=== PATIENT | male | born 2000 | race Caucasian/White ===

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

== ENCOUNTER 2021-01-25 19:48 | Emergency (ER) | payer OTHER ==
[~2021-01-25] VITALS: Ht 183 cm; Wt 129.0 kg
[2021-01-25 19:58] VITALS: BP 132/77
[2021-01-25] MEDS ORDERED: CETI10CA PO (20:04)
[2021-01-25] MEDS ORDERED: PARO10TA3 PO (20:04)
[2021-01-25] MEDS ORDERED: ALBU8TAB PO (20:04)
[2021-01-25] MEDS ORDERED: MONT10TA21 PO (20:04)
[2021-01-25] MEDS ORDERED: MUPIROCIN 2% OINT 22 GM (BACTROBAN) TUBE NSEACH ONE (20:15)
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
== END 2021-01-25 20:19 | disposition home or self-care (01) ==
LOC: EDUNIT# 19:48 → ER 19:50
DX: R19.8 Other specified symptoms and signs involving the digestive system and abdomen (principal); J45.909 Unspecified asthma, uncomplicated; Z79.899 Other long term (current) drug therapy
CPT/HCPCS: 99281

== ENCOUNTER 2022-10-31 23:56 | Emergency (ER) | payer OTHER ==
[~2022-10-31 23:56] MED LIST changes: +ALBU8TAB PO; +CETI10CA PO; +MONT-47 PO; +PARO10TA3 PO
[2022-11-01 00:22] VITALS: BP 134/97
--- NOTE | 2022-11-01 00:41 | ED Abdominal Pain ---
General Chief Complaint: Abdominal/GI Problems Stated Complaint: ABD PAIN,NAUSEA Nursing Triage Note: PT AMB TO RM 3 WITH CC OF RUQ ABD PAIN SINCE YESTERDAY AM. PT REPORTS NAUSEA, WEAKNESS AND DIARRHEA. Source of Information: Patient Exam Limitations: No Limitations History of Present Illness Date Seen by Provider: Nov 01, 2022 Time Seen by Provider: 00:40 Initial Comments Patient is a 22-year-old male who presents to the emergency department with a chief complaint of abdominal pain, nausea and diarrhea. Patient states his symptoms started early yesterday with multiple bouts of diarrhea nonblack nonbloody. He denies any fever. He states the pain has been kind of central in his abdomen but has slowly migrated to the right lower quadrant. He states it got much worse before bed this evening. His last oral intake food ledesma was around 6 PM. He did have something to drink just prior to arrival. He states movement makes the pain worse. Nothing makes it any better. He has never had any abdominal operations. He has not taken anything for the pain. Currently rates his pain at a "4" he states at its worst it was around an "8 or 9". He believes he is allergic to doxycycline but he is not sure. Timing/Duration: 1-2 Days Severity/Quality: Severe, Cramping Location: Periumbilical Radiation: RLQ Activities at Onset: None Associated Symptoms: Nausea/Vomiting, Weakness, Other (diarrhea) Allergies and Home Medications Allergies Coded Allergies: No Known Drug Allergies (Unverified , 01/03/12) Patient Home Medication List Home Medication List Reviewed: Yes Albuterol Sulfate (Albuterol Sulfate) 8 Mg Tab.er.12h, Unknown Dose PO, (Reported) Entered as Reported by: FRANKLIN CHAVARRIA on 01/25/212003 Cetirizine HCl (Zyrtec) 10 Mg Capsule, Unknown Dose PO, (Reported) Entered as Reported by: FRANKLIN CHAVARRIA on 01/25/212003 Montelukast Sodium (Singulair) 10 Mg Tablet, Unknown Dose PO, (Reported) Entered as Reported by: FRANKLIN CHAVARRIA on 01/25/212003 Paroxetine HCl (Paroxetine HCl) 10 Mg Tablet, Unknown Dose PO, (Reported) Entered as Reported by: FRANKLIN CHAVARRIA on 01/25/212003 Review of Systems Review of Systems Constitutional: see HPI EENTM: No Symptoms Reported Respiratory: No Symptoms Reported Cardiovascular: No Symptoms Reported Gastrointestinal: Abdominal Pain, Diarrhea, Nausea Genitourinary: Other (history of "overactive" bladder) Musculoskeletal: no symptoms reported Skin: no symptoms reported Psychiatric/Neurological: Other (history of Bipolar disorder - states compliant with his meds - no complaints) All Other Systems Reviewed Negative Unless Noted: Yes Past Knrrtya-Pjuzjf-Rlwhio Hx Patient Social History Tobacco Use?: No Substance use?: No Alcohol Use?: No Immunizations Up To Date Tetanus Booster (TDap): Less than 5yrs First/Initial COVID19 Vaccinat: 11/04 Second COVID19 Vaccination Vince: 12/05 Third COVID19 Vaccination Date: 11/04 Seasonal Allergies Seasonal Allergies: Yes Past Medical History Surgery/Hospitalization HX: asthma,adhd Surgeries: Yes Tonsillectomy Respiratory: Yes Asthma Currently Using CPAP: No Currently Using BIPAP: No Cardiac: No Neurological: No Genitourinary: No Gastrointestinal: No Musculoskeletal: No Endocrine: No HEENT: Yes (S/P TONSILLECTOMY) Tonsilitis Cancer: No Psychosocial: No Integumentary: No Blood Disorders: No Family Medical History No Pertinent Family Hx Physical Exam Vital Signs Vital Signs - First Documented 11/01/22 00:22 Temp 36.9 Pulse 100 Resp 18 B/P (MAP) 134/97 (109) Pulse Ox 100 O2 Delivery Room Air Capillary Refill : Height/Weight/BMI Height: '58" Weight: 134lbs. oz. 60.628754gt; 38.00 BMI Method: General Appearance: WD/WN, no apparent distress HEENT: PERRL/EOMI Neck: normal inspection Respiratory: lungs clear, normal breath sounds, no respiratory distress, no accessory muscle use Cardiovascular: regular rate, rhythm Gastrointestinal: soft, abnormal bowel sounds (quiet BS), rebound, tenderness (RLQ; + Rovsing's) Extremities: normal range of motion, normal inspection Neurologic/Psychiatric: alert, normal mood/affect, oriented x 3 Skin: normal color, warm/dry Progress/Results/Core Measures Results/Orders Lab Results Laboratory Tests Test 11/01/22 00:23 Range/Units White Blood Count 11.8 H 4.3-11.0 10^3/uL Red Blood Count 5.60 H 4.30-5.52 10^6/uL Hemoglobin 17.0 13.3-17.7 g/dL Hematocrit 49 40-54 % Mean Corpuscular Volume 87 80-99 fL Mean Corpuscular Hemoglobin 30 25-34 pg Mean Corpuscular Hemoglobin Concent 35 32-36 g/dL Red Cell Distribution Width 12.2 10.0-14.5 % Platelet Count 198 130-400 10^3/uL Mean Platelet Volume 10.6 9.0-12.2 fL Immature Granulocyte % (Auto) 0 % Neutrophils (%) (Auto) 63 42-75 % Lymphocytes (%) (Auto) 26 12-44 % Monocytes (%) (Auto) 9 0-12 % Eosinophils (%) (Auto) 2 0-10 % Basophils (%) (Auto) 1 0-10 % Neutrophils # (Auto) 7.4 1.8-7.8 10^3/uL Lymphocytes # (Auto) 3.1 1.0-4.0 10^3/uL Monocytes # (Auto) 1.0 0.0-1.0 10^3/uL Eosinophils # (Auto) 0.2 0.0-0.3 10^3/uL Basophils # (Auto) 0.1 0.0-0.1 10^3/uL Immature Granulocyte # (Auto) 0.0 0.0-0.1 10^3/uL Sodium Level 137 135-145 MMOL/L Potassium Level 3.8 3.6-5.0 MMOL/L Chloride Level 104 98-107 MMOL/L Carbon Dioxide Level 23 21-32 MMOL/L Anion Gap 10 5-14 MMOL/L Blood Urea Nitrogen 11 7-18 MG/DL Creatinine 0.97 0.60-1.30 MG/DL Estimat Glomerular Filtration Rate 114 BUN/Creatinine Ratio 11 Glucose Level 97 70-105 MG/DL Calcium Level 9.7 8.5-10.1 MG/DL Corrected Calcium 8.5-10.1 MG/DL Total Bilirubin 0.5 0.1-1.0 MG/DL Aspartate Amino Transf (AST/SGOT) 46 H 5-34 U/L Alanine Aminotransferase (ALT/SGPT) 131 H 0-55 U/L Alkaline Phosphatase 108 40-136 U/L Total Protein 7.3 6.4-8.2 GM/DL Albumin 4.6 H 3.2-4.5 GM/DL Lipase 26 8-78 U/L My Orders Orders - LINETTE,KEISHA M MD Ed Iv/Invasive Line Start (11/01/22 00:41) Cbc With Automated Diff (11/01/22 00:41) Comprehensive Metabolic Panel (11/01/22 00:41) Lipase (11/01/22 00:41) Ns Iv 1000 Ml (Sodium Chloride 0.9%) (11/01/22 01:12) Fentanyl Inj (Sublimaze Injection) (11/01/22 01:15) Ondansetron Injection (Zofran Injectio (11/01/22 01:15) Ct Abd/Pelv W (Appendicitis) (11/01/22 01:13) Iohexol Injection (Omnipaque 350 Mg/Ml 1 (11/01/22 01:45) Received Contrast (Hold Metformin- Contr (11/01/22 01:45) Sodium Chloride Flush (Catheter Flush Sy (11/01/22 01:45) Ns (Ivpb) (Sodium Chloride 0.9% Ivpb Bag (11/01/22 01:45) Medications Given in ED Current Medications Medications Dose Ordered Sig/Lyndon Route Start Time Stop Time Status Last Admin Dose Admin Fentanyl Citrate 50 mcg ONCE ONCE IVP 11/01/22 01:15 11/01/22 01:17 DC 11/01/22 01:23 50 MCG Iohexol 100 ml ONCE ONCE IV 11/01/22 01:45 11/01/22 01:46 DC 11/01/22 01:47 100 ML Ondansetron HCl 4 mg ONCE ONCE IVP 11/01/22 01:15 11/01/22 01:17 DC 11/01/22 01:23 4 MG Sodium Chloride 10 ml NEEDED PRN IV 11/01/22 01:45 11/01/22 01:47 10 ML Sodium Chloride 100 ml ONCE ONCE IV 11/01/22 01:45 11/01/22 01:46 DC 11/01/22 01:47 80 ML Vital Signs/I&O 11/01/22 00:22 Temp 36.9 Pulse 100 Resp 18 B/P (MAP) 134/97 (109) Pulse Ox 100 O2 Delivery Room Air Blood Pressure Mean: 109 Progress Progress Note : Time: 03:40 Departure Impression Primary Impression: Abdominal pain Qualified Codes: R10.31 - Right lower quadrant pain Additional Impression: Enteritis Disposition: HOME, SELF-CARE Condition: Stable Departure-Patient Inst. Decision time for Depature: 04:02 Referrals: [facility]/MOHINI (PCP) Primary Care Physician GONZALEZ LARSON (Family) Primary Care Physician Patient Instructions: Diarrhea, Adult ED Add. Discharge Instructions: Drink plenty of clear liquids today to stay well hydrated. You can slowly advance your diet as tolerated this evening. You can take an over the counter anti-diarrheal medication if needed. Follow packaging instructions. Ondansetron 4mg orally disintegrating tablets - 1 every 8 hours as needed for nausea. If you develop a fever over 101, worsening pain with vomiting, please return to the Emergency Department for re-evaluation. Scripts Ondansetron (Ondansetron Odt) 4 Mg Tab.rapdis 4 MG PO Q6H PRN for NAUSEA/VOMITING, #12 TAB 0 Refills Prov: KEISHA SUE MD 11/01/22 Work/School Note: Work Release Form Date Seen in the Emergency Department: J 2022 Return to Work: Nov 02, 2022 Copy Copies To 1: NARAYAN ROBERTO KATHRYN M MD Nov 01, 2022 00:41
[2022-11-01 00:46] LABS: BASOPHILS # (AUTO) 0.1 10^3/uL (0.0-0.1); BASOPHILS % (AUTO) 1 % (0-10); EOSINOPHILS # (AUTO) 0.2 10^3/uL (0.0-0.3); EOSINOPHILS % (AUTO) 2 % (0-10); HEMATOCRIT 49 % (40-54); LYMPHOCYTES # (AUTO) 3.1 10^3/uL (1.0-4.0); LYMPHOCYTES % (AUTO) 26 % (12-44); MEAN CORPUSCULAR HEMOGLOBIN 30 pg (25-34); MEAN CORPUSCULAR HGB CONC 35 g/dL (32-36); MEAN CORPUSCULAR VOLUME 87 fL (80-99); MEAN PLATELET VOLUME 10.6 fL (9.0-12.2); MONOCYTES % (AUTO) 9 % (0-12); NEUTROPHILS # (AUTO) 7.4 10^3/uL (1.8-7.8); NEUTROPHILS % (AUTO) 63 % (42-75); PLATELET COUNT 198 10^3/uL (130-400); WHITE BLOOD COUNT 11.8 10^3/uL (4.3-11.0)
[2022-11-01 00:50] LABS: ALBUMIN 4.6 GM/DL (3.2-4.5)
[2022-11-01 00:51] LABS: CHLORIDE 104 MMOL/L (98-107); POTASSIUM 3.8 MMOL/L (3.6-5.0); SODIUM 137 MMOL/L (135-145)
[2022-11-01 00:52] LABS: CALCIUM 9.7 MG/DL (8.5-10.1)
[2022-11-01 00:53] LABS: GLUCOSE 97 MG/DL (70-105); TOTAL PROTEIN 7.3 GM/DL (6.4-8.2)
[2022-11-01 00:54] LABS: CARBON DIOXIDE 23 MMOL/L (21-32)
[2022-11-01 00:55] LABS: BILIRUBIN,TOTAL 0.5 MG/DL (0.1-1.0)
[2022-11-01 00:56] LABS: ALKALINE PHOSPHATASE 108 U/L (40-136)
[2022-11-01 00:57] LABS: CREATININE SERUM 0.97 MG/DL (0.60-1.30); GFR ESTIMATED 114
[2022-11-01 00:58] LABS: BUN/CREATININE RATIO 11
[2022-11-01 00:59] LABS: ALANINE AMINOTRANSFERASE 131 U/L (0-55)
[2022-11-01 01:00] LABS: LIPASE 26 U/L (8-78)
[2022-11-01] MEDS ORDERED: NS IV 1000 ML 1,000 ML IV STA (01:12)
[2022-11-01] MEDS ORDERED: fentaNYL INJ 100 MCG/2 ML AMP IVP ONE (01:15)
[2022-11-01] MEDS ORDERED: ONDANSETRON 4 MG/2 ML (SDV) Z0FRAN IVP ONE (01:15)
[2022-11-01] MEDS ORDERED: NS 100 ML (IVPB) BAG IV ONE (01:45)
[2022-11-01] MEDS ORDERED: IOHEXOL 350 MG/ML 100 ML (OMNIPAQUE 350) VIAL IV ONE (01:45)
[2022-11-01] MEDS ORDERED: HOLD METFORMIN - RECEIVED CONTRAST 20 ML VIAL IV SCH (01:45)
[2022-11-01] MEDS ORDERED: CATHETER FLUSH 10 ML SYR IV PRN (01:45)
[2022-11-01] MEDS ORDERED: DICYCLOMINE 10 MG (BENTYL) CAP PO STA (04:05)
[2022-11-01] MEDS ORDERED: ONDA4TAB11 PO (04:05)
[2022-11-01] MEDS ORDERED: DICYCLOMINE 10 MG (BENTYL) CAP ONE (04:08)
--- NOTE | 2022-11-01 06:54 | Diagnostic Imaging Report ---
PROCEDURE: CT abdomen and pelvis with contrast, rule out appendicitis. TECHNIQUE: Multiple contiguous axial images were obtained through the abdomen and pelvis after the administration of intravenous contrast. All CT scans use one or more of the following dose optimizing techniques: automated exposure control, MA and/or KvP adjustment based on patient size and exam type or iterative reconstruction. INDICATION: Right lower quadrant abdominal pain COMPARISON: None FINDINGS: The lung bases are clear. The heart is normal in size. There is no pericardial effusion. The liver demonstrates no focal lesions. There does appear to be some fatty infiltration on this postcontrast exam. The spleen appears borderline prominent. The pancreas appears normal. The adrenal glands are unremarkable. The kidneys demonstrate no enhancing lesions and there is no hydronephrosis. The appendix is normal. The bowel loops are nondistended without obstruction. There is moderate stool in the sigmoid colon. No free fluid or free air seen. The aorta is normal in caliber. There are a few mildly prominent lymph nodes in the right lower abdomen. No acute osseous abnormality is seen. IMPRESSION: 1. The appendix is normal. Few mildly prominent lymph nodes in the right lower quadrant could represent mesenteric adenitis. 2. Fat infiltration of the liver. Findings regarding potential mesenteric adenitis were not included in the preliminary report, otherwise agree with the preliminary report. These additional findings were communicated to the Emergency Room via the additional findings tracking sheet. Dictated by: Dictated on workstation # [id number]
== END 2022-11-01 04:15 | disposition home or self-care (01) ==
LOC: EDUNIT# 23:56 → ER 11-01
DX: K52.9 Noninfective gastroenteritis and colitis, unspecified (principal)
CPT/HCPCS: 36415; 74177; 80053; 83690; 85025